=== PATIENT | male | born 2000 | race African-American/Black ===

== ENCOUNTER 2021-11-20 01:51 | Emergency (ER) | payer OTHER ==
[~2021-11-20] VITALS: Ht 154.9 cm; Wt 54.4 kg
[2021-11-20 01:56] VITALS: BP 101/55
[2021-11-20] MEDS ORDERED: ZYRTEC10 M5 PO (02:01)
[2021-11-20 03:01] LABS: HEMATOCRIT 42.2 % (42.0-52.0); HEMOGLOBIN 13.8 gm/dL (14.0-18.0); MCH 29.1 pg (26.0-34.0); MCHC 32.6 g/dL (28.0-37.0); MCV 89.4 fL (80.0-100.0); RBC 4.73 mil/uL (4.50-6.00); RDW 12.2 % (10.5-14.5)
[2021-11-20 03:03] LABS: CALCIUM 9.1 mg/dL (8.5-10.1); POTASSIUM 3.9 mmol/L (3.5-5.1)
--- NOTE | 2021-11-20 07:41 | EKG ---
[address] [place] [address] ELECTROCARDIOGRAM REPORT Name: YOKASTAAXEL Room #: REG Jethro#: [id number] Admission: 11/20/21 Attend Phys: Discharge: Date of : [birth year] Report #: [id number] [facility] ED Test Date: 2021-11-20 Test Time: 02:41:04 Pat Name: AXEL TEMPLETON Department: Room: Gender: Rig Manager: LANDY : 2000 Requested By: Demetri Rayo Order Number: [id number] MD: Umseh Parrish Measurements Intervals [place] Rate: 63 P: 65 [place]: 140 QRS: 70 QRSD: 93 T: 61 QT: 372 QTc: 381 Interpretive Statements Sinus rhythm LVH by voltage No previous ECG available for comparison Electronically Signed On 11-20-2021 7:40:56 HOT HEAD MACHINE OPERATOR by Umesh Parrish [email or web address] <ELECTRONICALLY SIGNED> By: Umesh Parrish MD, [facility] 11/20/21 0740 [id number] Umesh Parrish MD, FACC /EPI
== END 2021-11-20 03:00 | disposition home or self-care (01) ==
LOC: ER 01:51
PROVIDERS: Emergency Medicine
DX: R06.00 Dyspnea, unspecified (principal); Z20.822 Contact with and (suspected) exposure to COVID-19; R07.89 Other chest pain

== ENCOUNTER 2021-11-25 03:02 | Emergency (ER) | payer OTHER ==
[~2021-11-25] VITALS: Ht 175.3 cm; Wt 59.0 kg
[~2021-11-25 03:02] MED LIST: ZYRTEC10 M5 PO
[2021-11-25 04:47] LABS: ABSOLUTE NEUTROPHILS 1.8 thou/uL (1.4-8.2); BASOPHILS 1.1 % (0.0-2.0); HEMATOCRIT 43.2 % (42.0-52.0); LYMPHOCYTES 42.6 % (24.0-44.0); MCH 28.8 pg (26.0-34.0); MCHC 32.4 g/dL (28.0-37.0); MCV 88.9 fL (80.0-100.0); MONOCYTES 10.5 % (1.0-8.0); PLATELET COUNT 335 thou/uL (150-400); POLYS 40.8 % (36.0-66.0); RBC 4.86 mil/uL (4.50-6.00); RDW 12.1 % (10.5-14.5); WBC 4.4 thou/uL (4.0-11.0)
[2021-11-25 04:53] LABS: CALCIUM 9.3 mg/dL (8.5-10.1); POTASSIUM 4.2 mmol/L (3.5-5.1)
[2021-11-25] MEDS ORDERED: PEPCID20 MG PO (05:00)
[2021-11-25 05:03] LABS: ALBUMIN 4.3 g/dL (3.4-5.0); TOTAL PROTEIN 7.9 g/dL (6.4-8.2)
[2021-11-25 06:01] VITALS: BP 108/74
--- NOTE | 2021-11-25 09:43 | EKG ---
[address] [place] [address] ELECTROCARDIOGRAM REPORT Name: AXEL TEMPLETON [id number] Admission: 11/25/21 Attend Phys: Discharge: 11/25/21 Date of : [birth year] Report #: [id number] [facility] ED Test Date: 2021-11-25 Test Time: 03:09:54 Pat Name: AXEL TEMPLETON Department: Room: Gender: [place] Pot Tender[facility] : 2000 Requested By: Taco Baez Order Number: [id number] MD: Umesh Parrish Measurements Intervals [place] Rate: 67 P: 74 [place]: 138 QRS: 73 QRSD: 98 T: 51 QT: 383 QTc: 405 Interpretive Statements Sinus rhythm Probable left ventricular hypertrophy Compared to ECG 11/20/2021 02:41:04 No significant changes Electronically Signed On 11-25-2021 9:42:37 PUMP ASSEMBLER by Umesh Parrish [email or web address] <ELECTRONICALLY SIGNED> By: Umesh Parrish MD, [facility] 11/25/21 0942 0309 0309 Umesh Parrish MD, FACC /EPI
== END 2021-11-25 06:03 | disposition home or self-care (01) ==
LOC: ER 03:02
PROVIDERS: Emergency Medicine
DX: K21.00 Gastro-esophageal reflux disease with esophagitis, without bleeding (principal); R07.89 Other chest pain; I25.2 Old myocardial infarction; Z79.899 Other long term (current) drug therapy